=== PATIENT | male | born 1985 | race Hispanic/Latino ===

== ENCOUNTER 2019-01-04 21:53 | Emergency (ER) | payer OTHER ==
[~2019-01-04] VITALS: Ht 160 cm; Wt 78.0 kg
[~2019-01-04 21:53] MED LIST: ZOVIRAX400 MG PO
[2019-01-04] MEDS ORDERED: GENTAMICIN15 ML/BTL OS (22:28)
[2019-01-04 22:40] VITALS: BP 132/81
== END 2019-01-04 22:40 | disposition home or self-care (01) | DRG 125 ==
LOC: ED 21:53
DX: T15.02XA Foreign body in cornea, left eye, initial encounter (principal); X58.XXXA Exposure to other specified factors, initial encounter; Y93.89 Activity, other specified; Y92.89 Other specified places as the place of occurrence of the external cause; Y99.0 Civilian activity done for income or pay